=== PATIENT | female | born 1990 | race Hispanic/Latino ===

== ENCOUNTER 2021-06-15 21:37 | Emergency (ER) | payer SELFPAY ==
[~2021-06-15] VITALS: Ht 154.9 cm; Wt 110.2 kg
[2021-06-15] MEDS ORDERED: CYCLOBENZAPRINE HCL 10 MG TABLET PO ONE (22:30)
[2021-06-15] MEDS ORDERED: HYDROCODONE/ACETAMINOPHEN 10/325 MG TAB PO ONE (22:30)
[2021-06-15] MEDS ORDERED: NAPR-1180 PO (23:53)
[2021-06-16] VITALS: BP 130/82
== END 2021-06-16 00:12 | disposition home or self-care (01) ==
LOC: EDH 21:37
DX: S00.12XA Contusion of left eyelid and periocular area, initial encounter (principal); S80.812A Abrasion, left lower leg, initial encounter; S50.311A Abrasion of right elbow, initial encounter; Z88.6 Allergy status to analgesic agent; Z79.1 Long term (current) use of non-steroidal anti-inflammatories (NSAID); Y04.0XXA Assault by unarmed brawl or fight, initial encounter; Y93.89 Activity, other specified; Y92.89 Other specified places as the place of occurrence of the external cause; Y99.8 Other external cause status
CPT/HCPCS: 70486; 81025